=== PATIENT | male | born 1995 | race Two or more races ===

== ENCOUNTER 2016-09-17 17:01 | Emergency (ER) | payer SELFPAY ==
--- NOTE | ~2016-09-17 | ER ---
PATIENT'S NAME: NAWAF WERNER [facility] AGE: 21 Y [address] ROOM: [place] [address] LOCATION: [facility] ADMIT DATE: 09/17/2016 ER/Outpatient Report DISCHARGE DATE: 09/17/2016 FAMILY PHYSICIAN: Physician, Unknown ATTENDING PHYSICIAN: Korey Garcia HISTORY OF PRESENT ILLNESS: A 21-year-old patient, who was signed out to me by Dr. Garcia at change of shift. Briefly, a 21-year-old, who presents with generalized weakness, being very thirsty, being very fatigued, and tired. He is pending the rest of his lab work and the urine. The only abnormality that I see really was the lactic acid was 2.5. The patient already received 2 L of normal saline by the time I had come in. The urine was positive for marijuana. I went back to interview the patient, and his friend says that the patient took some kind of gummy marijuana like a few hours before all of this started. No one else had it. He currently feels fine. He says he is able to walk, and he has been walking to and from the bathroom without any help. His vitals are fine. His lab work is pretty unremarkable. So, we will be discharging him home. IMPRESSION: Generalized weakness. MD WOO PHILLIPS/beulah /[id number] d: 09/18/16 0409 t: 09/20/16 0028, OUTPATIENT REPORT
--- NOTE | ~2016-09-17 | ER ---
PATIENT'S NAME: NAWAF WERNER [facility] AGE: 21 Y [address] ROOM: [place] [address] LOCATION: ED ADMIT DATE: 09/17/2016 ER/Outpatient Report DISCHARGE DATE: 09/17/2016 FAMILY PHYSICIAN: Physician, Unknown ATTENDING PHYSICIAN: Korey Garcia CHIEF COMPLAINT: Weakness and heart palpitations. HISTORY OF PRESENT ILLNESS: Around 2:00 p.m., the patient began to feel ill. His friend gave him some water and salt water and continued to feel worse and felt like his heart was racing, so they brought him in. The friend did carry him into the emergency department. He is originally from the country of [facility]. He has been in the [place] for a year. He says he is up-to-date on all of his immunizations, and he has had no recent travel. He does follow up his studies at [employer] [facility] per report. PAST MEDICAL HISTORY: Negative for any significant medical issues. ALLERGIES: NO KNOWN MEDICAL ALLERGIES. MEDICATIONS: None. SOCIAL HISTORY: Denies any drug or alcohol use. REVIEW OF SYSTEMS: All systems were reviewed and negative except as noted in the HPI. PHYSICAL EXAMINATION: VITAL SIGNS: Blood pressure is 137/103, pulse is 136, respiratory rate is 22, temperature 96.8, and SpO2 is 100% on room air. GENERAL: Age-appropriate male, in no obvious pain or distress, appearing listless, resting on the exam table. NEUROLOGIC: The patient is awake and alert. He does follow commands in all extremities. No obvious asymmetry on exam. HEENT: Normocephalic, atraumatic. The eyes are PERRL. Pupils dilated at 5 to 6 mm. The oropharynx is clear. No erythema or exudates. NECK: Supple. No adenopathy. Trachea is midline. CHEST: Heart is tachycardic with no obvious murmurs. Lungs are clear to auscultation bilateral in all lung godinez. PATIENT'S NAME: NAWAF WERNER [facility] AGE: 21 Y [address] ROOM: [place] [address] LOCATION: [facility] ADMIT DATE: 09/17/2016 ER/Outpatient Report DISCHARGE DATE: 09/17/2016 FAMILY PHYSICIAN: Physician, Unknown ATTENDING PHYSICIAN: Korey Garcia BACK: Nontender to palpation throughout. No CVA tenderness. EXTREMITIES: Warm, well perfused. No edema or deformities or tenderness. SKIN: Warm, dry, and intact with brisk capillary refill. LABORATORY DATA AND X-RAYS: Chest x-ray was pending. EKG reveals sinus tachycardia, no obvious other abnormalities. Urinalysis is pending. Hemoglobin A1c 5.8. CMS notable for glucose of 162. Alcohol below threshold. Amylase and lipase are within normal limits. Acetaminophen and salicylates below threshold. CRP below threshold. Free T4 is 1.4. TSH is 0.052. Procalcitonin is below threshold. D-dimer is below threshold. CBC: WBC is 5.6, hemoglobin 14.8, platelets of 258. INR is 1.0. Serum ketones are negative. Troponin is below threshold. Lactate is 2.7. IMPRESSION: 1. Likely dehydration. 2. Hyperthyroidism. EMERGENCY DEPARTMENT COURSE: The patient was seen and evaluated as above. Volume resuscitation was initiated with normal saline. A broad differential was entertained. Not consistent with any overdose at this time. No clear Graves disease. The patient's care was transferred to Dr. Bernal at 1800 hours with a plan to follow up the urine studies, re-evaluate the patient, and disposition appropriately. All questions were answered, and the patient's care was transferred at [address] Bernal's dictation for completion of encounter. MD PATRICIA PALM/beulah /[id number] d: 09/18/16 0706 t: 10/06/16 0853, OUTPATIENT REPORT
[2016-09-17 17:22] LABS: BASOPHIL % 0.7 %; EOSINOPHIL # 0.2 K/uL (0.0-0.5); EOSINOPHIL % 2.8 %; HEMATOCRIT 46.4 % (37.0-53.0); HEMOGLOBIN 14.8 g/dL (12.0-17.0); IMMATURE GRANULOCYTE % 0.4 %; LYMPHOCYTE # 2.6 K/uL (0.8-4.0); LYMPHOCYTE % 46.1 %; MCH 21.9 pg (27.0-34.0); MCHC 31.9 gm/dL (32.0-36.5); MCV 68.6 fl (83.0-98.0); MONOCYTE # 0.4 K/uL (0.0-1.0); MONOCYTE % 7.7 %; MPV 9.8 fl (9.4-12.4); NEUTROPHIL # (ANC) 2.4 K/uL (1.4-9.0); NEUTROPHIL % 42.3 %; NRBC % 0 /100WBC (0-0.00); PLATELET COUNT 258 K/uL (150-450); RBC 6.76 M/uL (4.00-6.00); RDW-CV 15.7 % (11.9-14.6); WBC 5.7 K/uL (4.0-11.0)
[2016-09-17 17:45] LABS: INR - (THERAPEUTIC) 1.08 (0.92-1.07); PROTIME 11.3 SECONDS (9.8-11.4); PTT 28 SECONDS (25-32)
[2016-09-17 17:47] LABS: ALBUMIN 4.3 gm/dL (3.5-5.0); ALK PHOS 69 IU/L (33-138); ALT 18 IU/L (12-78); ANION GAP 13.8 (10.0-19.0); AST 12 IU/L (10-40); BLOOD UREA NITROGEN 14 mg/dL (6-24); CHLORIDE 103 mMol/L (96-110); CO2 24 mMol/L (22-32); CREATININE 0.9 mg/dL (0.6-1.3); ESTIMATED GFR (MDRD EQUATION) > 60; POTASSIUM 3.8 mMol/L (3.7-5.1); SODIUM 137 mMol/L (135-145); TOTAL BILIRUBIN 0.6 mg/dL (0.0-1.5)
[2016-09-17 18:09] LABS: BILIRUBIN URINE NEGATIVE (NEGATIVE); BLOOD URINE NEGATIVE /UL (NEGATIVE); COLOR URINE YELLOW (YELLOW); GLUCOSE URINE NEGATIVE (NEGATIVE); KETONE URINE NEGATIVE (NEGATIVE); LEUKOCYTES URINE NEGATIVE /UL (NEGATIVE); NITRITE URINE NEGATIVE (NEGATIVE); PH URINE 6.5 (4.0-8.0); PROTEIN URINE NEGATIVE (NEGATIVE); SPEC GRAVITY URINE 1.005 (1.003-1.035); TURBIDITY URINE CLEAR (CLEAR); UROBILINOGEN URINE NORMAL (NORMAL)
[2016-09-17 18:37] LABS: COCAINE NEGATIVE (NEGATIVE); OPIATES NEGATIVE (NEGATIVE)
[2016-09-17 18:44] LABS: AMPHETAMINE NEGATIVE (NEGATIVE); BARBITURATE NEGATIVE (NEGATIVE)
== END 2016-09-17 19:04 | disposition disaster alternative care site (69) ==
LOC: GMED 17:01
PROVIDERS: Emergency Medicine
DX: R53.1 Weakness (principal); E03.9 Hypothyroidism, unspecified
CPT/HCPCS: G0480; J7030